=== PATIENT | female | born 1980 | race Caucasian/White ===

== ENCOUNTER 2022-01-23 07:47 | Outpatient (CLI) | payer BC | END 2022-01-23 07:48 | disposition home or self-care (01) | LOC: CSHLAB 07:47 | PROVIDERS: ATTEND Student in an Organized Health Care Education/Training Program | DX: Z01.812 Encounter for preprocedural laboratory examination (principal); Z20.822 Contact with and (suspected) exposure to COVID-19; N93.8 Other specified abnormal uterine and vaginal bleeding | CPT/HCPCS: 84703; 85027; 86850; 86900; 86901; U0003; U0005 ==